=== PATIENT | male | born 1975 | race Caucasian/White ===

== ENCOUNTER 2025-02-24 07:30 | Inpatient (IN) ==
[2025-02-24] MEDS ORDERED: PRECEDEX INJ VIAL ONE (09:42)
[2025-02-24] MEDS ORDERED: XYLOCAINE 2 % (PLAIN) ONE (09:42)
[2025-02-24] MEDS ORDERED: SUPRANE IN ONE (09:42)
[2025-02-24] MEDS: FENTANYL VIAL INJ 100 mcg ONE (10:01)
[2025-02-24] MEDS: VERSED ONE ×2 (10:01→14:14)
[2025-02-24] MEDS: DIPRIVAN VIAL 20 ML ONE (10:01)
[2025-02-24] MEDS: ZEMURON 100 MG VIAL ONE (10:02)
[2025-02-24] MEDS: NEO-SYNEPHRINE INJ ONE (10:03)
[2025-02-24] MEDS: NS 500 ML IV 500 ML IV ONE (10:08)
--- NOTE | 2025-02-24 10:08 | EKG ---
Test Reason : pre op Blood Pressure : */* mmHG Vent. Rate : 58 BPM Atrial Rate : 58 BPM P-R Int : 138 ms QRS Dur : 94 ms QT Int : 438 ms P-R-T Axes : 68 78 80 degrees QTc Int : 429 ms Sinus bradycardia Biatrial enlargement Anterior infarct , age undetermined Abnormal ECG Confirmed by Rivera Gonzalez MD ([id number]) on 02/24/2025 2:31:05 PM Referred By: Confirmed By: Rivera Gonzalez MD
[2025-02-24] MEDS ORDERED: BENADRYL INJ 50 MG VIAL IVP PRN (10:32)
[2025-02-24] MEDS ORDERED: ZOFRAN INJ 4 MG VIAL IVP PRN (10:32)
[2025-02-24] MEDS ORDERED: BARHEMSYS INJ IVP PRN (10:32)
[2025-02-24] MEDS ORDERED: DILAUDID INJ IVP PRN (10:32)
[2025-02-24] MEDS ORDERED: REGLAN INJ 10 MG VIAL IVP PRN (10:32)
--- NOTE | 2025-02-24 10:43 | RAD ---
EXAMINATION: CHEST, 1 VIEW HISTORY: pre op vascular; . COMPARISON STUDY: 06/17/2024 TECHNIQUE: Two views FINDINGS: Heart size is normal. Lungs are hyperinflated with flattening of the hemidiaphragms. No acute infiltrates. Linear opacities in the upper lobes may represent atelectasis or scarring. Hilar and mediastinal structures and bony structures are unremarkable and unchanged. IMPRESSION: No acute findings in the chest. Emphysematous changes. No change compared with previous THIS IS AN ELECTRONICALLY VERIFIED FINAL REPORT 02/24/2025 10:21 AM - Electronically signed by Mike Gomez MD
[2025-02-24 10:45] LABS: MEAN PLATELET VOLUME 7.5 fL (7.4-11.0); RED CELL DISTRIBUTION WIDTH 15.3 % (11.6-16.5)
[2025-02-24] MEDS: LR 1,000 ML IV 1,000 ML IV ONE ×2 (10:46→12:05)
[2025-02-24] MEDS: DUONEB 0.5 MG/3 MG (3 mL) NEB ONE (10:46)
[2025-02-24 11:01] LABS: CREATININE 0.91 mg/dL (0.70-1.30); eGFR NON BLACK RACES > 60 (>60)
[2025-02-24 11:10] VITALS: BMI 16.5
[2025-02-24] MEDS: NS 100 ML IV 100 ML ONE (11:11)
[2025-02-24] MEDS: ANCEF VIAL 1 GRAM ONE (11:11)
[2025-02-24] MEDS: EPHEDRINE SULFATE INJ ONE (11:36)
[2025-02-24] MEDS: MARCAINE 0.5% ONE (11:41)
[2025-02-24] MEDS: HEPARIN 1,000 UNIT/500 ML-NS 1,000 UNIT/500 ML IV.SOLN ONE (11:41)
[2025-02-24] MEDS: PRECEDEX INJ VIAL ONE (11:59)
[2025-02-24] MEDS: HEPARIN SODIUM INJ 5000 UNITS ONE (11:59)
[2025-02-24] MEDS: OFIRMEV IV 1000 MG VIAL 1,000 MG/100 ML VIAL IV ONE (12:35)
[2025-02-24] MEDS: ROBINUL ONE (12:37)
[2025-02-24] MEDS: ZOFRAN INJ 4 MG VIAL ONE (12:38)
[2025-02-24] MEDS: PROTAMINE SULFATE 50 MG VIAL ONE (12:38)
[2025-02-24] MEDS ORDERED: VENTOLIN or PROAIR HFA IN PRN (13:14)
--- NOTE | 2025-02-24 13:14 | OR.IMMED ---
IMMEDIATE POST-OP NOTE Immediate Post-Op Note Date of surgery/procedure: 02/24/25 Pre-Op Diagnosis: Greater than 90% stenosis right internal carotid artery Post-Op Diagnosis: Same Procedure: Right carotid endarterectomy and patch angioplasty Description of Procedure: dictated Surgeon/Lens Molding Equipment Operator: Freddy Findings: as above Specimens Removed: plaque Estimated Blood Loss: <50 cc Complications: none Progress Notes: To PACU then to ICU for observation
[2025-02-24] MEDS ORDERED: XOPENEX 1.25 MG/3 ML NEBULE NEB SCH (14:00)
[2025-02-24] MEDS: LR 1,000 ML IV 1,000 ML IV SCH (14:15)
[2025-02-24] MEDS: XOPENEX 1.25 MG/3 ML NEBULE NEB SCH (16:22)
[2025-02-24] MEDS: XOPENEX 1.25 MG/3 ML NEBULE NEB ONE (16:31)
[2025-02-24] MEDS: COREG TAB 3.125 MG PO SCH (22:21)
[2025-02-25] MEDS: SYNTHROID 25 mcg TAB PO SCH (06:30)
[2025-02-25] MEDS: PROTONIX TAB 40 MG PO SCH (08:07)
[2025-02-25] MEDS: LIPITOR TAB 40 MG PO SCH (08:07)
[2025-02-25] MEDS: ASPIRIN EC 81 MG PO SCH (08:07)
[2025-02-25] MEDS: ZESTRIL TAB 5 MG PO SCH (08:08)
--- NOTE | 2025-02-25 11:20 | NOTE.SOAP ---
Soap Note Note for Day of Date of Exam: 02/25/25 Subjective Data Subjective Data: Postoperative day #1 status post right carotid enterectomy and patch angioplasty. Patient doing well. No neurological deficits. Eating well. No significant hematoma of the right neck. Objective Data Temperature: 98.3 F Pulse Rate: 66 Respiratory Rate: 20 Blood Pressure: 114/55 O2 Sat by Pulse Oximetry: 96 Objective Data: As above Assessment Assessment: Patient ready for discharge but his home health is not available to begin until tomorrow. Will keep him until then Plan Plan: Discharge tomorrow. Discontinue Garcia catheter advance to regular diet. Continue Plavix and aspirin
[2025-02-26 04:13] VITALS: RESP 20
[2025-02-26] MEDS: PLAVIX PO SCH (08:27)
[2025-02-26 08:53] VITALS: BP 120/57; PULSE 63; TEMP 98.2; O2SAT 96
--- NOTE | 2025-02-26 11:25 | W.DIS.FURT ---
Summary of Discharge Discharge Summary of Date Date of Exam: 02/26/25 Admission Date Date of Admission: 02/24/25 Admission Diagnosis Hospital Course: 50-year-old male, heavy smoker with 90% stenosis of the right internal carotid artery. Patient underwent uncomplicated right carotid enterectomy on the date of admission February 24. He has done well. He has no neurological deficits. Wound is healing nicely. He did not get discharged yesterday because his home health service was not available as of yet. He will be discharged today on his usual home medication including Plavix daily and follow-up with me in 1 week. Vital Signs: Vital Signs (72 hours) 02/24/25 10:00 02/24/25 10:46 02/24/25 13:07 Temperature 97.9 F 97 F L Pulse Rate 63 74 Respiratory Rate 20 20 Blood Pressure 129/71 115/59 O2 Sat by Pulse Oximetry 100 99 Oxygen Delivery Method Room Air Room Air Aerosol Face Tent Oxygen Flow Rate FIO2% 02/24/25 13:12 02/24/25 13:17 02/24/25 13:22 Temperature Pulse Rate 63 68 60 Respiratory Rate 20 20 20 Blood Pressure 130/60 134/60 123/57 O2 Sat by Pulse Oximetry 100 100 100 Oxygen Delivery Method Aerosol Face Tent Aerosol Face Tent Aerosol Face Tent Oxygen Flow Rate FIO2% 02/24/25 13:27 02/24/25 13:32 02/24/25 13:37 Temperature Pulse Rate 59 L 65 66 Respiratory Rate 20 18 18 Blood Pressure 125/60 115/56 113/56 O2 Sat by Pulse Oximetry 96 98 98 Oxygen Delivery Method Room Air Nasal Cannula Nasal Cannula Oxygen Flow Rate FIO2% 02/24/25 13:45 02/24/25 14:06 02/24/25 14:39 Temperature 96.4 F L Pulse Rate 60 50 L Respiratory Rate 22 17 Blood Pressure 102/57 105/53 O2 Sat by Pulse Oximetry 100 100 Oxygen Delivery Method Nasal Cannula Nasal Cannula Nasal Cannula Oxygen Flow Rate 2 2 2 FIO2% 28 02/24/25 14:45 02/24/25 15:00 02/24/25 15:08 Temperature 97.5 F L Pulse Rate 54 L 50 L 54 L Respiratory Rate 18 23 26 H Blood Pressure 92/51 89/50 90/48 O2 Sat by Pulse Oximetry 100 100 100 Oxygen Delivery Method Nasal Cannula Nasal Cannula Nasal Cannula Oxygen Flow Rate 2 2 2 FIO2% 02/24/25 15:15 02/24/25 15:30 02/24/25 15:49 Temperature Pulse Rate 51 L 51 L 51 L Respiratory Rate 17 13 13 Blood Pressure 92/52 89/49 92/51 O2 Sat by Pulse Oximetry 100 100 100 Oxygen Delivery Method Nasal Cannula Nasal Cannula Nasal Cannula Oxygen Flow Rate 2 2 2 FIO2% 02/24/25 16:00 02/24/25 16:22 02/24/25 16:30 Temperature 97.9 F Pulse Rate 49 L 52 L 44 L Respiratory Rate 14 18 Blood Pressure 91/51 99/50 O2 Sat by Pulse Oximetry 100 97 100 Oxygen Delivery Method Nasal Cannula Nasal Cannula Oxygen Flow Rate 2 2 FIO2% 02/24/25 17:00 02/24/25 18:00 02/24/25 19:00 Temperature Pulse Rate 46 L 50 L 52 L Respiratory Rate 13 20 23 Blood Pressure 90/48 93/49 94/53 O2 Sat by Pulse Oximetry 100 100 100 Oxygen Delivery Method Nasal Cannula Nasal Cannula Nasal Cannula Oxygen Flow Rate 2 2 FIO2% 02/24/25 19:00 02/24/25 20:00 02/24/25 21:00 Temperature 98.0 F Pulse Rate 53 L 51 L Respiratory Rate 20 19 Blood Pressure 95/50 96/50 O2 Sat by Pulse Oximetry 100 100 Oxygen Delivery Method Nasal Cannula Nasal Cannula Nasal Cannula Oxygen Flow Rate 2 2 2 FIO2% 02/24/25 21:22 02/24/25 22:00 02/24/25 23:00 Temperature Pulse Rate 62 64 Respiratory Rate 22 26 H Blood Pressure 99/52 107/54 O2 Sat by Pulse Oximetry 99 99 Oxygen Delivery Method Nasal Cannula Nasal Cannula Nasal Cannula Oxygen Flow Rate 2 2 2 FIO2% 28 02/25/25 00:00 02/25/25 01:00 02/25/25 02:00 Temperature 98.4 F Pulse Rate 67 72 77 Respiratory Rate 12 25 H 24 Blood Pressure 115/56 115/56 116/56 O2 Sat by Pulse Oximetry 99 100 97 Oxygen Delivery Method Nasal Cannula Nasal Cannula Nasal Cannula Oxygen Flow Rate 2 2 2 FIO2% 02/25/25 03:00 02/25/25 04:00 02/25/25 05:00 Temperature 98.2 F Pulse Rate 72 75 73 Respiratory Rate 17 16 16 Blood Pressure 119/58 118/61 123/66 O2 Sat by Pulse Oximetry 98 98 98 Oxygen Delivery Method Nasal Cannula Nasal Cannula Nasal Cannula Oxygen Flow Rate 2 2 2 FIO2% 02/25/25 06:00 02/25/25 07:00 02/25/25 07:00 Temperature Pulse Rate 78 72 Respiratory Rate 22 14 Blood Pressure 127/61 127/61 O2 Sat by Pulse Oximetry 97 94 L Oxygen Delivery Method Nasal Cannula Nasal Cannula Nasal Cannula Oxygen Flow Rate 2 2 2 FIO2% 02/25/25 08:00 02/25/25 09:00 02/25/25 10:00 Temperature 98.2 F Pulse Rate 71 65 66 Respiratory Rate 18 20 20 Blood Pressure 121/60 124/63 121/75 O2 Sat by Pulse Oximetry 98 95 95 Oxygen Delivery Method Nasal Cannula Nasal Cannula Nasal Cannula Oxygen Flow Rate 2 2 2 FIO2% 02/25/25 10:27 02/25/25 11:00 02/25/25 11:20 Temperature 98.3 F 98.3 F Pulse Rate 66 66 Respiratory Rate 20 20 Blood Pressure 114/55 114/55 O2 Sat by Pulse Oximetry 96 96 Oxygen Delivery Method Room Air Nasal Cannula Oxygen Flow Rate 2 2 FIO2% 28 02/25/25 16:05 02/25/25 19:00 02/25/25 20:00 Temperature 98.2 F 99.4 F Pulse Rate 58 L 67 Respiratory Rate 16 17 Blood Pressure 117/64 143/63 O2 Sat by Pulse Oximetry 96 95 Oxygen Delivery Method Room Air Room Air Room Air Oxygen Flow Rate FIO2% 02/25/25 21:35 02/26/25 00:00 02/26/25 04:00 Temperature 99.3 F 98.1 F Pulse Rate 67 60 Respiratory Rate 16 20 Blood Pressure 126/58 119/56 O2 Sat by Pulse Oximetry 97 99 Oxygen Delivery Method Room Air Nasal Cannula Room Air Oxygen Flow Rate 2 2 FIO2% 28 02/26/25 07:00 02/26/25 08:00 02/26/25 08:42 Temperature 98.2 F Pulse Rate 63 Respiratory Rate 20 Blood Pressure 120/57 O2 Sat by Pulse Oximetry 96 Oxygen Delivery Method Room Air Room Air Room Air Oxygen Flow Rate 2 FIO2% 28 Labs: Laboratory Last Values WBC 6.1 X10^3/uL (3.6-10.0) 02/24/25 10:30 RBC 5.18 X10^6/uL (4.7-6.0) 02/24/25 10:30 Hgb 16.4 g/dL (13.5-18.0) 02/24/25 10:30 Hct 47.3 % (42.0-54.0) 02/24/25 10:30 MCV 91.4 fL (80.0-100.0) 02/24/25 10:30 MCH 31.6 pg (27.0-34.0) 02/24/25 10:30 MCHC 34.6 g/dL (33.0-35.0) 02/24/25 10:30 RDW 15.3 % (11.6-16.5) 02/24/25 10:30 Plt Count 158 X10^3/uL (150.0-450.0) 02/24/25 10:30 MPV 7.5 fL (7.4-11.0) 02/24/25 10:30 Neut % (Auto) 53.7 % (42.0-75.0) 02/24/25 10:30 Lymph % (Auto) 34.6 % (21.0-51.0) 02/24/25 10:30 [place] % (Auto) 10.0 % (0.0-13.0) 02/24/25 10:30 Eos % (Auto) 0.5 % (0.9-2.9) L 02/24/25 10:30 Baso % (Auto) 1.2 % (0.2-1.0) H 02/24/25 10:30 Neut # (Auto) 3.3 x10^3/uL (2.2-4.8) 02/24/25 10:30 Lymph # (Auto) 2.1 X10^3/uL (1.3-2.9) 02/24/25 10:30 [place] # (Auto) 0.6 x10^3/uL (0.3-0.8) 02/24/25 10:30 Eos # (Auto) 0.0 x10^3/uL (0.0-0.2) 02/24/25 10:30 Baso # (Auto) 0.1 X10^3/uL (0.0-0.1) 02/24/25 10:30 Absolute Nucleated RBC 0.1 /100WBC 02/24/25 10:30 Sodium 133 mmol/L (136-145) L 02/24/25 10:30 Corrected Sodium TNP 02/24/25 10:30 Potassium 4.5 mmol/L (3.5-5.1) 02/24/25 10:30 Chloride 101 mmol/L (98-107) 02/24/25 10:30 Carbon Dioxide 27.6 mmol/L (21-32) 02/24/25 10:30 BUN 17 mg/dL (7-18) 02/24/25 10:30 Creatinine 0.91 mg/dL (0.70-1.30) 02/24/25 10:30 Est GFR (MDRD) Af Amer > 60 (>60) 02/24/25 10:30 Est GFR (MDRD) Non-Af > 60 (>60) 02/24/25 10:30 Glucose 83 mg/dL (65-99) 02/24/25 10:30 Calcium 8.9 mg/dL (8.5-10.1) 02/24/25 10:30 Corrected Calcium TNP 02/24/25 10:30 Total Bilirubin 1.40 mg/dL (0.2-1.0) H 02/24/25 10:30 AST 39 Units/L (15-37) H 02/24/25 10:30 ALT 36 Units/L (12-78) 02/24/25 10:30 Alkaline Phosphatase 145 Units/L (46-116) H 02/24/25 10:30 Total Protein 7.7 g/dL (6.4-8.2) 02/24/25 10:30 Albumin 3.9 g/dL (3.4-5.0) 02/24/25 10:30 Globulin 3.8 g/dL (2.5-4.5) 02/24/25 10:30 Albumin/Globulin Ratio 1.0 Ratio (1.1-2.1) L 02/24/25 10:30 Blood Type B POSITIVE 02/24/25 10:30 Antibody Screen Negative 02/24/25 10:16 Reason For Visit: ENDATERECTOMY, CAROTID (R) Discharge Date Discharge Date: 02/26/25 Discharge Diagnosis All Active Problems (Updated 11/22/24 @ 11:37 by BALA SMITH MD) Allergy to iodine (Acute) Cardiomyopathy (Acute) Claudication (Acute) Carotid stenosis (Acute) Hyperlipidemia (Acute) COPD (chronic obstructive pulmonary disease) (Acute) Plan of Treatment: Continue with present treatment and follow up plan. Pt is to keep follow up appointment as instructed and take medications as ordered. Discharge Medications Discharge Medications: Iodine and Iodide Containing Produc Allergy (Verified 11/22/24 11:29) CONTINUE taking the following medications albuterol sulfate 2.5 mg/3 mL (0.083 %) solution for nebulization 2.5 mg inhalation Q6H 02/24/25 [History] Aspirin 81 mg by mouth Atorvastatin 40 mg daily Carvedilol 3.25 mg twice daily Plavix 75 mg daily ezetimibe 10 mg daily Famotidine 40 mg daily Levothyroxine 25 mcg daily Lisinopril 2.5 mg a day Montelukast 10 mg tablet daily Tiotropium bromide 18 mcg capsule with elation device daily Percocet 5 mg tablets 1 every 6 hours as needed pain, #20 Discharge Disposition Assessment: see hospital course Discharge Plan Discharge Plan Hospital Course: 50-year-old male, heavy smoker with 90% stenosis of the right internal carotid artery. Patient underwent uncomplicated right carotid enterectomy on the date of admission February 24. He has done well. He has no neurological deficits. Wound is healing nicely. He did not get discharged yesterday because his home health service was not available as of yet. He will be discharged today on his usual home medication including Plavix daily and follow-up with me in 1 week. Patient Disposition: HOME HEALTH SERVICE Condition: Stable Health Concerns: Post Hospitalization: new medications and changes needed to prevent readmission or further decline. Pt educated and given instructions on all concerns. Care Plan Goals: Resume usual activity encouraged him not to smoke cigarettes Plan of Treatment: Continue with present treatment and follow up plan. Pt is to keep follow up appointment as instructed and take medications as ordered. Assessment: see hospital course Prescription drug monitoring program results: PDMP reviewed and no concerns identified Prescriptions: New oxycodone-acetaminophen [Percocet] 5-325 mg tablet 1 tab PO Q6H MDD 4 PRNQty: 20 0RF Continued tiotropium bromide [Spiriva with HandiHaler] 18 mcg capsule, w/inhalation device 1 cap inhalation QDAY ezetimibe 10 mg tablet 10 mg PO QDAY lisinopril 2.5 mg tablet 2.5 mg PO QDAY carvedilol 3.125 mg tablet 3.125 mg PO BID levothyroxine 25 mcg tablet 25 mcg PO QDAY famotidine 40 mg tablet 40 mg PO QDAY montelukast 10 mg tablet 10 mg PO DAILY aspirin 81 mg tablet,delayed release (DR/EC) 81 mg PO DAILY atorvastatin [Lipitor] 40 mg Tablet 40 mg PO QHS clopidogrel [Plavix] 75 mg Tablet 75 mg PO DAILY albuterol sulfate 2.5 mg /3 mL (0.083 %) solution for nebulization 2.5 mg inhalation Q6H Patient Comments: [NO ORIGINAL SIG] Follow ups/Referrals Follow ups/Referrals: DANA PISANO [Primary Care Provider, MEDICAL] - 1 WEEK Hadley Hayes [STAFF PHYSICIAN, Unknown] - 1 WEEK Instructions Instructions: Carotid Endarterectomy, Care After Activity Restrictions/Additional Instructions: PT IS TO FOLLOW UP WITH OTIS ARMENDARIZ IN A WEEK , AND CONTINUE ASPIRIN AND PLAVIX PRESCRIBED ,BR Stand Alone Forms: Excuse From Work or School, Find Help Web Site, Post Hospi j[facility] Follow Up Care Print Language: TAMAZIGHT
--- NOTE | 2025-02-27 01:14 | DR.OPNOTE ---
OP NOTE Pre-Op Diagnosis: Greater than 90% stenosis of the right internal carotid artery Post-Op Diagnosis: Same Procedure Date Date Of Procedure: 02/24/25 Procedure: PROCEDURE: Right carotid endarterectomy and patch angioplasty NARRATIVE: The patient was taken to the operative suite and placed in the supine position. General endotracheal anesthesia induced and the right neck was extended then prepped and draped in sterile fashion. Timeout for the procedure obtained. Linear incision was made along the anterior border of the right sternocleidomastoid muscle , dissecting through the platysma with electrocautery. Dissection was carried down sharply with Metzenbaum scissors and the carotid artery dissected free from the internal jugular vein. Vessel loops were placed around the common carotid artery, the internal carotid artery above the plaque and external carotid artery. The patient was heparinized with 5000 units of heparinand after 3 minutes the carotid artery was clamped and the common carotid opened through the internal carotid with 11 knife blade and Sanchez scissors revealing a very severe plaque at the takeoff of the internal carotid artery. A 12 [place] shunt was placed distally and then proximally into the artery and held in position with the Vesse loops . Endarterectomy was carried out in standard fashion using a Shell dissector to assist in dissecting the plaque in the commpn carotid artery dividing the plaque with Metzenbaum scissors and feathering it into the internal carotid artery and performed eversion endarterectomy of the external carotid artery. The internal carotid artery intima was tacked down with 2 sutures of interrupted 6-0 Prolene and a 0.8 cm wide bovine pericardial patch was then sewn in to repaired the arteriotomy with running 6-0 Prolene suture. Prior to completion of the closure the shunt removed, the arteries clamped and closure completed. Backbleeding allowed through the internal carotid artery showing no leaking , then the internal carotid controlled and common carotid clamp opened and finally the internal carotid artery opened. There was no active bleeding from the patch itself. Excellent Doppler signal of the internal carotid artery. Patient giv en 500 units of heparin at the beginning of the case. 20 mg of Protamine was given at the end of the case. Surgicel placed over the carotid artery patch. There was no further bleeding. Platysma closed with running 3-0 Vicryl suture and the skin closed with running 5-0 subcuticular suture. Steri-Strips applied and the patient tolerated this very well. Patient extubated with no neurological deficit and taken to the PACU in stable condition. Type of Anesthesia: General Anesthetic w/ETT Findings: As above Specimen/Pathology: Carotid artery plaque Type of Fluids Used:: Lactated Ringers Total Amount of Fluid Infused:: 1100 cc Urine output: 300 cc EBL: 50 cc Complications:: None Needle/Sponge Count:: Correct Disposition/Condition: Pt. tolerated procedure without difficulty. Extubated in the OR and taken to PACU in stable condition.
== END 2025-02-26 11:45 | disposition home health service (06) | DRG 39 ==
LOC: OBS 09:42 → ICU 10:11
PROVIDERS: ADMIT Surgery; ATTEND Surgery
DX: Z01.810 Encounter for preprocedural cardiovascular examination; R00.1 Bradycardia, unspecified; R94.31 Abnormal electrocardiogram [ECG] [EKG]; E78.5 Hyperlipidemia, unspecified; Z79.01 Long term (current) use of anticoagulants; K21.9 Gastro-esophageal reflux disease without esophagitis; J44.9 Chronic obstructive pulmonary disease, unspecified; I25.2 Old myocardial infarction; I65.23 Occlusion and stenosis of bilateral carotid arteries; I10 Essential (primary) hypertension